=== PATIENT | male | born 1935 | race Caucasian/White ===

== ENCOUNTER 2024-01-20 11:40 | Emergency (ER) | payer MEDICARE ==
[2024-01-20] MEDS: Sodium Chloride 0.9% 500 ML IV ONE ×2 (11:58→12:35)
[2024-01-20 12:02] LABS: BASOPHILS ABSOLUTE AUTO 0.04 K/uL (0.00-0.10); BASOPHILS PERCENT AUTO 0.3 % (0.1-1.3); EOSINOPHILS ABSOLUTE AUTO 0.05 K/uL (0.00-0.40); EOSINOPHILS PERCENT AUTO 0.3 % (0.0-5.4); HEMATOCRIT 41.6 % (38.4-49.7); HEMOGLOBIN 14.3 g/dL (12.9-16.9); IMMATURE GRAN ABSOLUTE AUTO 0.08 K/uL (0.00-0.23); IMMATURE GRAN PERCENT AUTO 0.5 % (0.0-0.7); LYMPHOCYTES ABSOLUTE AUTO 1.56 K/uL (0.8-3.3); LYMPHOCYTES PERCENT AUTO 10.5 % (11.4-47.7); MEAN CORPUSCULAR HEMOGLOBIN 32.1 pg (31.6-35.5); MEAN CORPUSCULAR HGB CONC 34.4 g/dL (31.6-35.5); MEAN CORPUSCULAR VOLUME 93.5 fL (81.4-99.0); MONOCYTES ABSOLUTE AUTO 1.27 K/uL (0.20-0.90); MONOCYTES PERCENT AUTO 8.5 % (3.3-12.6); NEUTROPHILS ABSOLUTE AUTO 11.87 K/uL (1.0-7.6); NEUTROPHILS PERCENT AUTO 79.9 % (40.0-78.1); PLATELET COUNT,PLT 264 K/uL (130-375); RED BLOOD CELL COUNT 4.45 M/uL (4.14-5.76); WHITE BLOOD CELL COUNT,WBC 14.9 K/uL (3.2-11.0)
[2024-01-20 12:25] LABS: CALCIUM 8.2 mg/dL (8.5-10.1); CREATININE 1.5 mg/dL (0.8-1.3); EST CRCL DRUG DOSING (CG) 34.7 mL/min; POTASSIUM,K 4.5 mmol/L (3.6-5.2)
[2024-01-20 12:26] LABS: ANION GAP 14.5 mmol/L (5.0-14.0)
[2024-01-20] MEDS: Iopamidol 612 MG/ML 100 ML Bottle IV PRN (14:45)
[2024-01-20] MEDS: Sodium Chloride 0.9% 10 ML Syringe FLUSH PRN (14:45)
[2024-01-20] MEDS: Sodium Chloride 0.9% 80 ML IV ONE (14:45)
[2024-01-20 16:12] VITALS: BP 130/83; PULSE 118
[2024-01-20] MEDS: Heparin Sodium/D5W 25,000 UNITS/500 ML BAG IV SCH (16:21)
[2024-01-20] MEDS: Heparin Sodium 5,000 Units/ML Vial IVPUSH ONE (16:23)
== END 2024-01-20 16:40 ==
LOC: JP.ED 11:40
DX: I26.09 Other pulmonary embolism with acute cor pulmonale (principal); R79.89 Other specified abnormal findings of blood chemistry; I48.91 Unspecified atrial fibrillation; E78.00 Pure hypercholesterolemia, unspecified; I10 Essential (primary) hypertension; E11.9 Type 2 diabetes mellitus without complications; Z87.891 Personal history of nicotine dependence; Z79.899 Other long term (current) drug therapy; Z91.041 Radiographic dye allergy status
CPT/HCPCS: 36415; 71046; 71275; 80048; 83605; 84145; 84484; 85025; 85379; 87040; 93005; 96361; 96365; 99285; J1644; J3490; J7040; Q9967; 93010

== ENCOUNTER 2024-04-05 19:48 | Emergency (ER) | payer MEDICARE ==
[2024-04-05 20:05] VITALS: BP 129/90; PULSE 68
[2024-04-05] MEDS: HYDROmorphone 1 MG/ML Syringe IVPUSH ONE (20:34)
[2024-04-05] MEDS ORDERED: Propofol 200 MG/20 ML SDV ONE (21:47)
== END 2024-04-05 22:38 | disposition home or self-care (01) ==
LOC: JP.ED 19:48
DX: S43.004A Unspecified dislocation of right shoulder joint, initial encounter (principal); I12.9 Hypertensive chronic kidney disease with stage 1 through stage 4 chronic kidney disease, or unspecified chronic kidney disease; N18.9 Chronic kidney disease, unspecified; E78.00 Pure hypercholesterolemia, unspecified; E11.22 Type 2 diabetes mellitus with diabetic chronic kidney disease; Z91.041 Radiographic dye allergy status; Z79.899 Other long term (current) drug therapy; W19.XXXA Unspecified fall, initial encounter
CPT/HCPCS: 01620; 23650; 73020; 73030; 96374; 99283; J1171; J2704